=== PATIENT | female | born 1995 | race Caucasian/White ===

== ENCOUNTER 2016-11-01 19:38 | Emergency (ER) | payer OTHER ==
[2016-11-01] MEDS ORDERED: IBUPROFEN 600 MG TABLET PO STA (21:37)
[2016-11-01] MEDS ORDERED: ONDANSETRON ODT 4 MG TABLET TL STA (21:37)
[2016-11-01] MEDS ORDERED: ACETAMINOPHEN 325 MG TABLET PO STA (21:38)
[2016-11-01] MEDS ORDERED: ONDANSETRON ODT 4 MG TABLET ONE (21:40)
[2016-11-01] MEDS ORDERED: IBUPROFEN 600 MG TABLET PO ONE (21:41)
[2016-11-01] MEDS ORDERED: ACETAMINOPHEN 325 MG TABLET PO ONE (21:41)
== END 2016-11-01 23:08 | disposition home or self-care (01) ==
DX: R10.32 Left lower quadrant pain (principal); R11.0 Nausea
CPT/HCPCS: 36415; 76830; 76856; 81003; 81025; 85025; 93976; 99283; 99284; A9270; Q0162

== ENCOUNTER 2018-03-12 15:39 | Emergency (ER) | payer OTHER ==
[2018-03-12 15:47] VITALS: BP 120/68
--- NOTE | 2018-03-12 17:01 | ED Physician Documentation ---
History of Present Illness - Stated complaint Stated Complaint: SPIDER BITES - Chief complaint Chief Complaint: General - History obtained from History obtained from: Patient - History of Present Illness Timing: How many days ago (3) - Additonal information Additional information: 22-year-old female who noticed some small red spots on her legs 3 days ago has had 1 of the spots in margin size and then shrink back down and they are all 3 red. They are not particularly tender or painful. There is no drainage from them. There is no lymphangitic streaking. Review of Systems Constitutional: denies: Fever, Chills Respiratory: denies: Cough GI: denies: Vomiting Skin: reports: Bite / sting Musculoskeletal: reports: Extremity pain. denies: Neck pain, Back pain PD PAST MEDICAL HISTORY - Past Surgical History Past Surgical History: No - Present Medications Home Medications: Ambulatory Orders Medication Instructions Recorded Confirmed No Known Home Medications [No 11/01/16 11/01/16 Known Home Medications] - Allergies Allergies/Adverse Reactions: Allergies Allergy/AdvReac Type Severity Reaction Status Date / Time No Known Drug Allergies Allergy Verified 03/12/18 15:47 - Social History Does the pt smoke?: No Smoking Status: Never smoker Does the pt drink ETOH?: No Does the pt have substance abuse?: No - Immunizations Immunizations are current?: Yes - POLST Patient has POLST: No PD ED PE NORMAL - Vitals Vital signs reviewed: Yes (normal ) - General General: Alert and oriented X 3, No acute distress, Well developed/nourished - HEENT HEENT: Atraumatic, PERRL - Respiratory Respiratory: No respiratory distress - Derm Derm: Normal color, Warm and dry - Extremities Extremities: No deformity, No edema, Other (There are 3 separate red spots each about 1.5cm round with a central area of escar about 2mm round. The largest is on the lateral right knee and this is the area that was larger and has shrunk back to 1.5cm. There is no fluctuance or drainage from any of the wounds. ) - Neuro Neuro: No motor deficit, No sensory deficit Eye Opening: Spontaneous Motor: Obeys Commands Verbal: Oriented GCS Score: 15 - Psych Psych: Normal mood, Normal affect Results - Vitals Vitals: Vital Signs - 24 hr 03/12/18 15:45 Temperature 36.6 C Heart Rate 72 Respiratory 18 Rate Blood Pressure 120/68 O2 Saturation 98 Oxygen O2 Source Room air PD MEDICAL DECISION MAKING - ED course Complexity details: considered differential, d/w patient ED course: 22-year-old female with what appear to be bug bites to her legs bilaterally that do not appear infected. There is a mild local reaction. - Sepsis Event Vital Signs: Vital Signs - 24 hr 03/12/18 15:45 Temperature 36.6 C Heart Rate 72 Respiratory 18 Rate Blood Pressure 120/68 O2 Saturation 98 Oxygen O2 Source Room air Departure - Departure Disposition: 01 Home, Self Care Clinical Impression: Insect bite of lower leg with local reaction Qualifiers: Encounter type: initial encounter Laterality: right Qualified Code(s): S80.861A - Insect bite (nonvenomous), right lower leg, initial encounter; W57.XXXA - Bitten or stung by nonvenomous insect and other nonvenomous arthropods, initial encounter; W57.XXXA - Bitten or stung by nonvenomous insect and other nonvenomous arthropods, initial encounter Condition: Stable Instructions: ED Bite Sting Insect Local Allergic React Follow-Up: [facility] [Provider Group]
== END 2018-03-12 17:08 | disposition home or self-care (01) ==
LOC: ED 15:39
DX: S80.861A Insect bite (nonvenomous), right lower leg, initial encounter (principal); S80.862A Insect bite (nonvenomous), left lower leg, initial encounter; W57.XXXA Bitten or stung by nonvenomous insect and other nonvenomous arthropods, initial encounter
CPT/HCPCS: 99281; 99282

== ENCOUNTER 2018-05-03 12:33 | Emergency (ER) | payer OTHER ==
[2018-05-03 12:40] VITALS: BP 123/66
[2018-05-03] MEDS ORDERED: PENICILLIN VK 250 MG TABLET PO STA (13:13)
[2018-05-03] MEDS ORDERED: DEXAMETHASONE 10 MG/ML VIAL PO STA (13:13)
--- NOTE | 2018-05-03 13:16 | ED Physician Documentation ---
History of Present Illness - Stated complaint Stated Complaint: SORE THROAT - Chief complaint Chief Complaint: Heent - History obtained from History obtained from: Patient - History of Present Illness Timing: How many days ago (several) Pain level max: 6 Pain level now: 5 Improved by: nothing - Additonal information Additional information: Patient is a 23-year-old female who presents to the emergency department the sore throat for the past 2-3 days. Worse with swallowing. Also complaining of left ear pain. Has not taken anything for this. Denies any fevers. No coughing. No vomiting. No diarrhea. No possibility of . Review of Systems Constitutional: denies: Fever, Chills Cardiac: denies: Chest pain / pressure Respiratory: denies: Cough, Wheezing GI: denies: Abdominal Pain, Vomiting : denies: Now EGA Skin: denies: Rash Musculoskeletal: denies: Neck pain, Back pain PD PAST MEDICAL HISTORY - Past Medical History Past Medical History: No - Past Surgical History Past Surgical History: No - Present Medications Home Medications: Ambulatory Orders Medication Instructions Recorded Confirmed Penicillin V Potassium 500 mg PO Q6HR #40 tablet 05/03/18 - Allergies Allergies/Adverse Reactions: Allergies Allergy/AdvReac Type Severity Reaction Status Date / Time No Known Drug Allergies Allergy Verified 05/03/18 12:40 - Social History Does the pt smoke?: No Smoking Status: Never smoker Does the pt drink ETOH?: No Does the pt have substance abuse?: No - Immunizations Immunizations are current?: Yes - POLST Patient has POLST: No PD ED PE NORMAL - Vitals Vital signs reviewed: Yes - General General: Alert and oriented X 3, No acute distress - HEENT HEENT: PERRL, Ears normal, Moist mucous membranes, Other (Moderate posterior oropharyngeal erythema with tonsillar exudates. Uvula midline. Normal phonation. No trismus) - Neck Neck: Supple, no meningeal sign, Other (shotty anterior cervical LAD) - Cardiac Cardiac: RRR - Respiratory Respiratory: No respiratory distress, Clear bilaterally - Abdomen Abdomen: Soft, Non tender - Derm Derm: Warm and dry, No rash - Neuro Neuro: Alert and oriented X 3 - Psych Psych: Normal mood, Normal affect Results - Vitals Vitals: Vital Signs - 24 hr 05/03/18 12:38 Temperature 36.6 C Heart Rate 87 Respiratory 18 Rate Blood Pressure 123/66 O2 Saturation 99 Oxygen O2 Source Room air - Labs Labs: Laboratory Tests 05/03/18 12:46 Group A Strep Rapid Negative PD MEDICAL DECISION MAKING - ED course Complexity details: reviewed results, considered differential, d/w patient ED course: Patient is a 23-year-old female who presents with what clinically appears to be streptococcal pharyngitis. She has tonsillar exudates, no cough and significant lymphadenopathy. Her rapid strep is negative, but given the poor sensitivity of this test, will treat her with antibiotics at this point given her clinical exam. I will have her follow-up with her doctor for further care. Patient counseled regarding signs and symptoms for which I believe and urgent re-evaluation would be necessary. Patient with good understanding of and agreement to plan and is comfortable going home at this time This document was made in part using voice recognition software. While efforts are made to proofread this document, sound alike and grammatical errors may occur. - Sepsis Event Vital Signs: Vital Signs - 24 hr 05/03/18 12:38 Temperature 36.6 C Heart Rate 87 Respiratory 18 Rate Blood Pressure 123/66 O2 Saturation 99 Oxygen O2 Source Room air Departure - Departure Disposition: 01 Home, Self Care Clinical Impression: Strep pharyngitis Condition: Good Instructions: ED Strep Pharyngitis Poss Follow-Up: your,doctor in 1 week [Other] Prescriptions: Penicillin V Potassium 500 mg PO Q6HR #40 tablet Comments: Drink plenty of fluids and rest. Return if you worsen. Take all antibiotics until gone Forms: Activity restrictions
== END 2018-05-03 13:23 | disposition home or self-care (01) ==
LOC: ED 12:33
DX: J02.0 Streptococcal pharyngitis (principal)
CPT/HCPCS: 87070; 87430; 99283; A9270